=== PATIENT | male | born 1975 | race African-American/Black ===

== ENCOUNTER 2016-11-30 10:24 | Inpatient (IN) | payer MEDICAID ==
[~2016-11-30] VITALS: Ht 172.7 cm; Wt 78.9 kg
[~2016-11-30 10:24] MED LIST: GLIP10TA13 PO; LISI5TAB7 PO; METF500T4 PO; METO10TA2 PO; ONDA4TAB13 SL; PROP20TA PO
[2016-11-30] MEDS ORDERED: SODIUM CHLORIDE 0.9% 1,000 ML IV ONE (10:39)
[2016-11-30] MEDS ORDERED: MAALOX/HYOSCYAMINE/LIDOCAINE 45 ML BOTTLE ONE (10:46)
[2016-11-30] MEDS ORDERED: HYDROmorphone 1 MG/ML, 1ML ONE ×2 (10:46→12:39)
[2016-11-30] MEDS ORDERED: LORazepam 2 MG/ML, 1ML ONE (10:46)
[2016-11-30] MEDS ORDERED: ONDANSETRON 2MG/ML, 2ML ONE (10:46)
[2016-11-30] MEDS ORDERED: LORazepam 2 MG/ML, 1ML IVPush ONE (11:00)
[2016-11-30] MEDS ORDERED: SODIUM CHLORIDE 0.9% 1,000ML IVBOLUS ONE (11:00)
[2016-11-30] MEDS ORDERED: FAMOTIDINE 20 MG/2 ML IVP ONE (11:00)
[2016-11-30] MEDS ORDERED: HYDROmorphone 1 MG/ML, 1ML IVPush PRN (11:00)
[2016-11-30] MEDS ORDERED: MAALOX/HYOSCYAMINE/LIDOCAINE 45 ML BOTTLE PO ONE (11:00)
[2016-11-30] MEDS ORDERED: ONDANSETRON 2MG/ML, 2ML IVPush ONE (11:00)
[2016-11-30 11:28] LABS: ASPARTATE AMINO TRANSFERASE 21 U/L (15-37); BLOOD UREA NITROGEN 7 mg/dL (7-18)
[2016-11-30] MEDS ORDERED: POLYETHYLENE GLYCOL 17 GM PACKET PO PRN (12:30)
[2016-11-30] MEDS ORDERED: DOCUSATE 100 MG CAPSULE PO PRN (12:30)
[2016-11-30] MEDS ORDERED: BISACODYL 10 MG SUPP PR PRN (12:30)
[2016-11-30] MEDS ORDERED: ENALAPRILAT 1.25 MG/ML, 2ML ONE (12:39)
[2016-11-30] MEDS: ENALAPRILAT 1.25 MG/ML, 2ML IVPush PRN (12:48)
[2016-11-30 13:39] VITALS: BP 179/81
[2016-11-30 14:08] VITALS: BP 179/81
[2016-11-30] MEDS: ENOXAPARIN 40 MG/0.4 ML SQ SCH (14:38)
[2016-11-30] MEDS: POTASSIUM CHLORIDE 40 MEQ in LACTATED RINGERS 1,000 ML IV SCH ×2 (14:38→21:54)
[2016-11-30] MEDS: INSULIN REGULAR 100 UNITS/ML, 3ML VIAL SQ-INSULIN SCH ×2 (16:27→21:54)
[2016-11-30] MEDS: MORPHINE SULFATE 4 MG/ML, 1ML IVPush PRN ×3 (16:27→22:40)
[2016-11-30 18:56] LABS: DAU SCREEN DISCLAIMER
[2016-11-30 19:31] LABS: PATH.CAST-FLAG NOT PRESENT; SPERM-FLAG NOT PRESENT; SRC-FLAG NOT PRESENT; XTAL-FLAG NOT PRESENT; YLC-FLAG NOT PRESENT
[2016-11-30 19:55] VITALS: BP 148/89
[2016-11-30] MEDS: ONDANSETRON 2MG/ML, 2ML IVP PRN (22:40)
[2016-11-30] MEDS: HYDROmorphone 2 MG/ML, 1ML IVPush PRN (23:18)
[2016-12-01 02:00] VITALS: BP 163/95
[2016-12-01] MEDS: POTASSIUM CHLORIDE 40 MEQ in LACTATED RINGERS 1,000 ML IV SCH (04:10)
[2016-12-01 05:46] LABS: BLOOD UREA NITROGEN 9 mg/dL (7-18)
[2016-12-01 05:50] LABS: ASPARTATE AMINO TRANSFERASE 11 U/L (15-37)
[2016-12-01] MEDS: ONDANSETRON 2MG/ML, 2ML IVP PRN ×2 (06:09→19:40)
[2016-12-01] MEDS: HYDROmorphone 2 MG/ML, 1ML IVPush PRN ×5 (06:09→22:50)
[2016-12-01 09:15] VITALS: BP 159/92
[2016-12-01] MEDS ORDERED: D5%-0.45% NACL 1,000 ML IV SCH (09:23)
[2016-12-01] MEDS ORDERED: HYDROmorphone 1 MG/ML, 1ML ONE (09:35)
[2016-12-01] MEDS: INSULIN REGULAR 100 UNITS/ML, 3ML VIAL SQ-INSULIN SCH ×4 (09:41→21:55)
[2016-12-01 11:00] VITALS: BP 162/91
[2016-12-01] MEDS: PANTOPRAZOLE 40 MG IV IVPush SCH ×2 (11:06→21:54)
[2016-12-01 15:00] VITALS: BP 161/97
[2016-12-01] MEDS: ENOXAPARIN 40 MG/0.4 ML SQ SCH (15:42)
[2016-12-01] MEDS ORDERED: METOCLOPRAMIDE 5 MG/ML, 2ML IVPush PRN (16:00)
[2016-12-01] MEDS: SODIUM CHLORIDE 0.9% 1,000 ML IV SCH ×2 (16:56→21:55)
[2016-12-01 19:23] VITALS: BP 184/92
[2016-12-02 02:20] VITALS: BP 170/95
[2016-12-02] MEDS: HYDROmorphone 2 MG/ML, 1ML IVPush PRN ×6 (02:45→21:51)
[2016-12-02] MEDS: SODIUM CHLORIDE 0.9% 1,000 ML IV SCH ×4 (05:52→21:54)
[2016-12-02 06:35] LABS: BLOOD UREA NITROGEN 8 mg/dL (7-18)
[2016-12-02 07:53] VITALS: BP 157/91
[2016-12-02] MEDS: PANTOPRAZOLE 40 MG IV IVPush SCH ×2 (09:46→22:00)
[2016-12-02] MEDS: INSULIN REGULAR 100 UNITS/ML, 3ML VIAL SQ-INSULIN SCH ×4 (09:48→20:10)
[2016-12-02] MEDS ORDERED: MAALOX/HYOSCYAMINE/LIDOCAINE 45 ML BOTTLE PO ONE (14:00)
[2016-12-02 14:45] VITALS: BP 180/95
[2016-12-02] MEDS ORDERED: LISINOPRIL 5 MG TABLET PO SCH (15:30)
[2016-12-02] MEDS: MAALOX/HYOSCYAMINE/LIDOCAINE 45 ML BOTTLE PO PRN ×2 (16:09→16:10)
[2016-12-02] MEDS: ENOXAPARIN 40 MG/0.4 ML SQ SCH (16:11)
[2016-12-02] MEDS: METOCLOPRAMIDE 5 MG/ML, 2ML IVPush SCH ×2 (16:12→20:23)
[2016-12-02] MEDS: SIMETHICONE 80 MG CHEW TAB PO SCH ×2 (16:12→20:23)
[2016-12-02] MEDS: SENNA/DOCUSATE TABLET PO SCH (16:25)
[2016-12-02 18:22] VITALS: BP 173/98
[2016-12-02 21:03] VITALS: BP 168/98
[2016-12-03] VITALS (7 sets, daily range): BP systolic 158–186; BP diastolic 87–104
[2016-12-03] MEDS: HYDROcodone/APAP 5/325 TABLET PO PRN ×3 (00:26→23:04)
[2016-12-03] MEDS: HYDROmorphone 2 MG/ML, 1ML IVPush PRN ×2 (01:56→05:13)
[2016-12-03] MEDS: SIMETHICONE 80 MG CHEW TAB PO SCH ×4 (08:37→20:19)
[2016-12-03] MEDS: INSULIN REGULAR 100 UNITS/ML, 3ML VIAL SQ-INSULIN SCH ×4 (08:38→20:18)
[2016-12-03] MEDS: METOCLOPRAMIDE 5 MG/ML, 2ML IVPush SCH ×3 (08:39→21:36)
[2016-12-03] MEDS: LISINOPRIL 5 MG TABLET PO SCH ×2 (08:40→20:19)
[2016-12-03] MEDS: SENNA/DOCUSATE TABLET PO SCH (08:40)
[2016-12-03] MEDS: PANTOPROZOLE 40MG TABLET PO SCH ×2 (09:30→21:36)
[2016-12-03] MEDS: SODIUM CHLORIDE 0.9% 1,000 ML IV SCH ×2 (12:57→21:40)
[2016-12-03] MEDS: ONDANSETRON 2MG/ML, 2ML IVP SCH ×2 (12:57→20:18)
[2016-12-03] MEDS: ENOXAPARIN 40 MG/0.4 ML SQ SCH (12:58)
[2016-12-03] MEDS: KETOROLAC 30 MG/1 ML IVPush PRN ×2 (13:04→21:36)
[2016-12-03] MEDS: ENALAPRILAT 1.25 MG/ML, 2ML IVPush PRN ×2 (15:04→22:02)
[2016-12-04] MEDS: ONDANSETRON 2MG/ML, 2ML IVP SCH ×3 (01:56→16:19)
[2016-12-04 01:58] VITALS: BP 168/99
[2016-12-04] MEDS: SIMETHICONE 80 MG CHEW TAB PO SCH ×4 (07:00→21:06)
[2016-12-04] MEDS: INSULIN REGULAR 100 UNITS/ML, 3ML VIAL SQ-INSULIN SCH ×4 (07:00→21:00)
[2016-12-04] MEDS: LISINOPRIL 5 MG TABLET PO SCH ×2 (09:00→21:00)
[2016-12-04] MEDS: METOCLOPRAMIDE 5 MG/ML, 2ML IVPush SCH ×3 (09:00→21:06)
[2016-12-04] MEDS ORDERED: SINCALIDE (KINEVAC) 5 MCG ONE (09:19)
[2016-12-04] MEDS: SODIUM CHLORIDE 0.9% 1,000 ML IV SCH (11:21)
[2016-12-04 11:22] VITALS: BP 170/126
[2016-12-04] MEDS: SENNA/DOCUSATE TABLET PO SCH (11:22)
[2016-12-04] MEDS: PANTOPROZOLE 40MG TABLET PO SCH ×2 (11:22→21:06)
[2016-12-04] MEDS: ENOXAPARIN 40 MG/0.4 ML SQ SCH (12:58)
[2016-12-04 16:43] VITALS: BP 176/105
[2016-12-04 20:12] VITALS: BP 176/100
[2016-12-05] MEDS: SODIUM CHLORIDE 0.9% 1,000 ML IV SCH ×3 (00:09→18:45)
[2016-12-05] MEDS: ONDANSETRON 2MG/ML, 2ML IVP SCH ×5 (00:09→23:42)
[2016-12-05 00:10] VITALS: BP 165/92
[2016-12-05 04:20] VITALS: BP 170/93
[2016-12-05] MEDS: KETOROLAC 30 MG/1 ML IVPush PRN ×2 (06:40→16:41)
[2016-12-05] MEDS: INSULIN REGULAR 100 UNITS/ML, 3ML VIAL SQ-INSULIN SCH ×4 (07:00→20:17)
[2016-12-05] MEDS: SIMETHICONE 80 MG CHEW TAB PO SCH ×4 (07:00→19:53)
[2016-12-05 07:20] VITALS: BP 157/91
[2016-12-05] MEDS ORDERED: FENTANYL PF 100 MCG/2ML ONE ×3 (07:58→13:38)
[2016-12-05] MEDS ORDERED: MIDAZOLAM 1 MG/ML, 5ML ONE ×2 (07:58→08:53)
[2016-12-05] MEDS ORDERED: DIPHENHYDRAMINE 50 MG/ML, 1ML ONE (08:53)
[2016-12-05] MEDS: PANTOPROZOLE 40MG TABLET PO SCH ×2 (09:00→19:53)
[2016-12-05] MEDS: LISINOPRIL 5 MG TABLET PO SCH ×2 (09:00→19:52)
[2016-12-05] MEDS: SENNA/DOCUSATE TABLET PO SCH (09:00)
[2016-12-05] MEDS: METOCLOPRAMIDE 5 MG/ML, 2ML IVPush SCH ×3 (09:49→19:53)
[2016-12-05] MEDS ORDERED: MIDAZOLAM 1 MG/ML, 2ML ONE (11:34)
[2016-12-05] MEDS ORDERED: FENTANYL PF 250 MCG/5ML ONE (11:34)
[2016-12-05] MEDS ORDERED: BUPIVACAINE/PF 0.5% ONE (12:09)
[2016-12-05] MEDS ORDERED: ONDANSETRON 2MG/ML, 2ML IVPush PRN (13:00)
[2016-12-05] MEDS ORDERED: NEOSTIGMINE 1 MG/ML, 10ML ONE (13:00)
[2016-12-05] MEDS ORDERED: LABETALOL 5MG/ML 40ML VIAL ONE (13:00)
[2016-12-05] MEDS ORDERED: ROCURONIUM 10 MG/ML ONE (13:00)
[2016-12-05] MEDS ORDERED: LABETALOL 5MG/ML, 20ML IV PRN (13:00)
[2016-12-05] MEDS ORDERED: OXYcodone 5 MG/5 ML ORAL.SOL UDC PO PRN (13:00)
[2016-12-05] MEDS ORDERED: PROMETHAZINE 25 MG/ML, 1ML IV PRN (13:00)
[2016-12-05] MEDS ORDERED: PROPOFOL 10 MG/ML, 20ML ONE (13:00)
[2016-12-05] MEDS ORDERED: METOCLOPRAMIDE 5 MG/ML, 2ML IV PRN (13:00)
[2016-12-05] MEDS ORDERED: CEFOTETAN 2 GM ONE (13:00)
[2016-12-05] MEDS ORDERED: GLYCOPYRROLATE 0.2MG/1ML ONE (13:00)
[2016-12-05] MEDS ORDERED: MEPERIDINE/PF 25MG/0.5ML IVPush PRN (13:00)
[2016-12-05] MEDS ORDERED: HYDROmorphone 2 MG/ML, 1ML ONE (13:38)
[2016-12-05] MEDS ORDERED: OXYcodone 5 MG/5 ML ORAL.SOL UDC ONE (13:38)
[2016-12-05] MEDS: ENOXAPARIN 40 MG/0.4 ML SQ SCH (14:00)
[2016-12-05] MEDS ORDERED: hydrALAzine 20 MG/ML, 1ML ONE (14:02)
[2016-12-05] MEDS: hydrALAzine 20 MG/ML, 1ML IV PRN ×2 (14:03→14:44)
[2016-12-05] MEDS: FENTANYL PF 100 MCG/2ML IV PRN ×2 (14:25→14:45)
[2016-12-05] MEDS: HYDROmorphone 1 MG/ML, 1ML IV PRN ×5 (14:53→15:15)
[2016-12-05 17:43] VITALS: BP 191/93
[2016-12-05] MEDS: HYDROcodone/APAP 5/325 TABLET PO PRN ×2 (17:48→23:42)
[2016-12-05] MEDS: ENALAPRILAT 1.25 MG/ML, 2ML IVPush PRN (17:49)
[2016-12-05 19:30] VITALS: BP 150/86
[2016-12-06 00:18] VITALS: BP 175/93
[2016-12-06] MEDS: KETOROLAC 30 MG/1 ML IVPush PRN ×2 (00:28→09:14)
[2016-12-06 04:20] VITALS: BP 157/81
[2016-12-06 04:52] LABS: BLOOD UREA NITROGEN 8 mg/dL (7-18)
[2016-12-06 04:57] LABS: ASPARTATE AMINO TRANSFERASE 24 U/L (15-37)
[2016-12-06] MEDS: SODIUM CHLORIDE 0.9% 1,000 ML IV SCH (05:00)
[2016-12-06] MEDS: ONDANSETRON 2MG/ML, 2ML IVP SCH ×2 (05:42→11:35)
[2016-12-06] MEDS: HYDROcodone/APAP 5/325 TABLET PO PRN ×2 (05:42→11:42)
[2016-12-06] MEDS: SIMETHICONE 80 MG CHEW TAB PO SCH ×2 (05:42→11:36)
[2016-12-06 06:32] VITALS: BP_SYST 176; BP_SYST 183; BP_DIAS 101; BP_DIAS 109
[2016-12-06] MEDS: ENALAPRILAT 1.25 MG/ML, 2ML IVPush PRN (06:47)
[2016-12-06] MEDS: INSULIN REGULAR 100 UNITS/ML, 3ML VIAL SQ-INSULIN SCH ×2 (07:38→11:00)
[2016-12-06 08:11] VITALS: BP 166/91
[2016-12-06] MEDS ORDERED: MORPHINE SULFATE 4 MG/ML, 1ML IVPush PRN (08:30)
[2016-12-06] MEDS: METOCLOPRAMIDE 5 MG/ML, 2ML IVPush SCH (09:12)
[2016-12-06] MEDS: LISINOPRIL 5 MG TABLET PO SCH (09:13)
[2016-12-06] MEDS: SENNA/DOCUSATE TABLET PO SCH (09:13)
[2016-12-06] MEDS: PANTOPROZOLE 40MG TABLET PO SCH (09:13)
[2016-12-06 12:29] VITALS: BP_SYST 170; BP_SYST 171; BP_DIAS 93; BP_DIAS 97
[2016-12-06] MEDS ORDERED: HYDR-3240 PO ×2 (12:57→14:54)
[2016-12-06] MEDS: ENOXAPARIN 40 MG/0.4 ML SQ SCH (14:00)
== END 2016-12-06 15:00 | disposition home or self-care (01) | DRG 417 ==
LOC: ED 11:44 → EDIP 11:45 → EDBD 11:45 → ED 12:02 → 4WST 13:40 → 4NOR 12-05 16:13 → DCLOUNGE 12-06 14:45
PROVIDERS: ADMIT Family Medicine; ATTEND Family Medicine
PROC: 0T9B70Z Drainage of Bladder with Drainage Device, Via Natural or Artificial Opening (ICD-10-PCS; 2016-11-30)
PROC: 0DJ08ZZ Inspection of Upper Intestinal Tract, Via Natural or Artificial Opening Endoscopic (ICD-10-PCS; 2016-12-05)
PROC: 0FT44ZZ Resection of Gallbladder, Percutaneous Endoscopic Approach (ICD-10-PCS; principal; 2016-12-05 10:15)
DX: K82.8 Other specified diseases of gallbladder (principal); G92 Toxic encephalopathy; K86.1 Other chronic pancreatitis; I11.9 Hypertensive heart disease without heart failure; F17.210 Nicotine dependence, cigarettes, uncomplicated; E11.65 Type 2 diabetes mellitus with hyperglycemia; K44.9 Diaphragmatic hernia without obstruction or gangrene; F12.10 Cannabis abuse, uncomplicated; G89.29 Other chronic pain; Z83.3 Family history of diabetes mellitus; Z79.84 Long term (current) use of oral hypoglycemic drugs; Z90.5 Acquired absence of kidney; Z71.51 Drug abuse counseling and surveillance of drug abuser
CPT/HCPCS: 36415; 71010; 76700; 78227; 78264; 80048; 80053; 80061; 80307; 81001; 82962; 83036; 83690; 85025; 85610; 86677; 87046; 87899; 88304; 89055; 93005; 96372; 96374; 96375; 96376; J1170; J1650; J1815; J1885; J2250; J2405; J2704; J2710; J3010; J3480; J3490; A9537; A9541; C9113; C9898; J0360; J1200; J2060; J2765; J2805; J7030; J7120; S0028; S0074

== ENCOUNTER 2016-12-10 08:09 | Emergency (ER) | payer MEDICAID ==
[~2016-12-10] VITALS: Ht 172.7 cm; Wt 78.0 kg
[~2016-12-10 08:09] MED LIST changes: +HYDR-3240 PO
[2016-12-10] MEDS ORDERED: OXYcodone/APAP 5/325MG TABLET PO ONE (09:30)
[2016-12-10] MEDS ORDERED: ONDANSETRON ODT 4 MG PO ONE (09:30)
[2016-12-10] MEDS ORDERED: OXYcodone/APAP 5/325MG TABLET ONE (09:52)
[2016-12-10] MEDS ORDERED: ONDANSETRON ODT 4 MG ONE (09:52)
[2016-12-10 10:30] LABS: PATH.CAST-FLAG NOT PRESENT; SPERM-FLAG NOT PRESENT; SRC-FLAG NOT PRESENT; XTAL-FLAG NOT PRESENT; YLC-FLAG NOT PRESENT
[2016-12-10 10:32] LABS: BLOOD UREA NITROGEN 12 mg/dL (7-18)
[2016-12-10 10:36] LABS: ASPARTATE AMINO TRANSFERASE 14 U/L (15-37)
[2016-12-10 11:23] VITALS: BP 160/97
[2016-12-10] MEDS ORDERED: DIPH,PERTUSS(ACELL),TET VAC/PF 0.5 ML IM-VACC ONE (11:30)
[2016-12-10] MEDS ORDERED: LIDOCAINE 1%, 20ML INFIL ONE (11:30)
== END 2016-12-10 11:34 | disposition home or self-care (01) ==
LOC: ED 08:37
DX: K59.00 Constipation, unspecified (principal); E11.9 Type 2 diabetes mellitus without complications; I10 Essential (primary) hypertension
CPT/HCPCS: 36415; 74020; 80053; 81001; 85025; 99285; Q0162

== ENCOUNTER 2016-12-11 01:25 | Emergency (ER) | payer MEDICAID ==
[~2016-12-11] VITALS: Ht 172.7 cm; Wt 77.5 kg
[2016-12-11] MEDS ORDERED: ONDANSETRON 2MG/ML, 2ML ONE (01:40)
[2016-12-11] MEDS ORDERED: HYDROmorphone 1 MG/ML, 1ML ONE (01:40)
[2016-12-11] MEDS ORDERED: METOCLOPRAMIDE 5 MG/ML, 2ML ONE (01:40)
[2016-12-11] MEDS ORDERED: HYDROmorphone 1 MG/ML, 1ML IVPush PRN (02:00)
[2016-12-11] MEDS ORDERED: ONDANSETRON 2MG/ML, 2ML IVPush ONE (02:00)
[2016-12-11] MEDS ORDERED: METOCLOPRAMIDE 5 MG/ML, 2ML IVPush ONE (02:00)
[2016-12-11 02:05] LABS: ASPARTATE AMINO TRANSFERASE 22 U/L (15-37); BLOOD UREA NITROGEN 10 mg/dL (7-18)
[2016-12-11 03:42] VITALS: BP 151/86
== END 2016-12-11 03:44 | disposition home or self-care (01) ==
LOC: ED 01:47
DX: K85.90 Acute pancreatitis without necrosis or infection, unspecified (principal); R10.13 Epigastric pain; E11.9 Type 2 diabetes mellitus without complications; I10 Essential (primary) hypertension
CPT/HCPCS: 36415; 80053; 83690; 85025; 96374; 96375; 99284; J1170; J2405; J2765

== ENCOUNTER 2016-12-13 23:48 | Emergency (ER) | payer MEDICAID ==
[~2016-12-13] VITALS: Ht 172.7 cm; Wt 77.3 kg
[2016-12-14] MEDS ORDERED: SODIUM CHLORIDE FLUSH 10ML SYR IVF ONE
[2016-12-14] MEDS ORDERED: ONDANSETRON 2MG/ML, 2ML IVPush ONE
[2016-12-14] MEDS ORDERED: SODIUM CHLORIDE 0.9% 1,000ML IVBOLUS ONE
[2016-12-14] MEDS ORDERED: MORPHINE SULFATE 4 MG/ML, 1ML IVPush PRN
[2016-12-14] MEDS ORDERED: ONDANSETRON 2MG/ML, 2ML ONE (00:06)
[2016-12-14] MEDS ORDERED: MORPHINE SULFATE 4 MG/ML, 1ML ONE (00:06)
[2016-12-14 00:29] LABS: BLOOD UREA NITROGEN 12 mg/dL (7-18)
[2016-12-14 00:33] LABS: ASPARTATE AMINO TRANSFERASE 24 U/L (15-37)
[2016-12-14] MEDS ORDERED: ONDANSETRON ODT 4 MG ONE (01:08)
[2016-12-14] MEDS ORDERED: METOCLOPRAMIDE 5 MG/ML, 2ML ONE (01:08)
[2016-12-14] MEDS ORDERED: ONDANSETRON ODT 4 MG PO ONE (01:30)
[2016-12-14] MEDS ORDERED: METOCLOPRAMIDE 5 MG/ML, 2ML IVPush ONE (01:30)
[2016-12-14] MEDS ORDERED: METOCLOPRAMIDE 5 MG/ML, 2ML IM ONE (01:30)
[2016-12-14] MEDS ORDERED: METHYLNALTREXONE 12 MG/0.6 ML SQ ONE (02:00)
[2016-12-14 02:40] VITALS: BP 137/86
[2016-12-14] MEDS ORDERED: FAMOTIDINE 20 MG/2 ML ONE (09:17)
== END 2016-12-14 02:50 | disposition home or self-care (01) ==
LOC: ED 23:59
DX: K59.00 Constipation, unspecified (principal); R10.31 Right lower quadrant pain; R10.11 Right upper quadrant pain; R10.84 Generalized abdominal pain; E11.9 Type 2 diabetes mellitus without complications; I10 Essential (primary) hypertension; Z90.49 Acquired absence of other specified parts of digestive tract
CPT/HCPCS: 36415; 74176; 80053; 83690; 85025; 96372; 99285; J2765; Q0162

== ENCOUNTER 2016-12-14 05:55 | Inpatient (IN) | payer MEDICAID ==
[~2016-12-14] VITALS: Ht 180.3 cm; Wt 74.7 kg
[2016-12-14] MEDS: SODIUM CHLORIDE 0.9% 1,000 ML IV ONE (06:12)
[2016-12-14] MEDS ORDERED: FAMOTIDINE 20 MG/2 ML IVP ONE (06:30)
[2016-12-14] MEDS ORDERED: SODIUM CHLORIDE FLUSH 10ML SYR IVF ONE (06:30)
[2016-12-14] MEDS ORDERED: SODIUM CHLORIDE 0.9% 1,000ML IVBOLUS ONE (06:30)
[2016-12-14] MEDS ORDERED: ONDANSETRON 2MG/ML, 2ML IVPush ONE (06:30)
[2016-12-14] MEDS ORDERED: HYDROmorphone 1 MG/ML, 1ML IVPush PRN (06:30)
[2016-12-14] MEDS ORDERED: LORazepam 2 MG/ML, 1ML ONE (06:43)
[2016-12-14] MEDS ORDERED: HYDROmorphone 1 MG/ML, 1ML ONE ×2 (06:52→08:52)
[2016-12-14] MEDS ORDERED: ONDANSETRON ODT 4 MG ONE (06:53)
[2016-12-14] MEDS ORDERED: LORazepam 2 MG/ML, 1ML IM ONE (07:00)
[2016-12-14] MEDS ORDERED: ONDANSETRON ODT 4 MG PO ONE ×2 (07:00→09:30)
[2016-12-14] MEDS ORDERED: HYDROmorphone 1 MG/ML, 1ML IM ONE ×2 (07:00→09:30)
[2016-12-14 07:36] LABS: ASPARTATE AMINO TRANSFERASE 35 U/L (15-37); BLOOD UREA NITROGEN 10 mg/dL (7-18)
[2016-12-14 07:43] LABS: DIFF TOTAL CELLS COUNTED 100 CELL DIFF
[2016-12-14] MEDS ORDERED: hydrALAzine 20 MG/ML, 1ML IV ONE (08:30)
[2016-12-14 08:34] LABS: VERIFY COUNTS? YES
[2016-12-14] MEDS ORDERED: hydrALAzine 20 MG/ML, 1ML ONE (08:53)
[2016-12-14] MEDS ORDERED: ONDANSETRON 2MG/ML, 2ML ONE (09:09)
[2016-12-14] MEDS ORDERED: ONDANSETRON 2MG/ML, 2ML IVPush PRN (10:00)
[2016-12-14] MEDS: AMPICILLIN/SULBACTAM 3 GM in SODIUM CHLORIDE 0.9% 100 ML IV SCH ×3 (10:00→20:45)
[2016-12-14] MEDS ORDERED: ENALAPRILAT 1.25 MG/ML, 2ML IV PRN (10:00)
[2016-12-14] MEDS: FAMOTIDINE 20 MG/2 ML IVPush SCH ×2 (10:00→21:17)
[2016-12-14 10:23] VITALS: BP 200/101
[2016-12-14] MEDS: SODIUM CHLORIDE 0.9% 1,000 ML IV SCH (12:36)
[2016-12-14] MEDS: HYDROmorphone 2 MG/ML, 1ML IVPush PRN ×2 (12:41→21:17)
[2016-12-14 13:33] VITALS: BP 147/89
[2016-12-14 18:53] VITALS: BP 166/92
[2016-12-14] MEDS: PROPRANOLOL 20 MG TABLET PO SCH (21:17)
[2016-12-15] VITALS (7 sets, daily range): BP systolic 140–189; BP diastolic 83–119
[2016-12-15] MEDS: HYDROmorphone 2 MG/ML, 1ML IVPush PRN ×3 (00:37→08:42)
[2016-12-15] MEDS: SODIUM CHLORIDE 0.9% 1,000 ML IV SCH (02:55)
[2016-12-15] MEDS: AMPICILLIN/SULBACTAM 3 GM in SODIUM CHLORIDE 0.9% 100 ML IV SCH (05:13)
[2016-12-15 05:54] LABS: BLOOD UREA NITROGEN 9 mg/dL (7-18)
[2016-12-15 05:57] LABS: ASPARTATE AMINO TRANSFERASE 31 U/L (15-37)
[2016-12-15] MEDS: FAMOTIDINE 20 MG/2 ML IVPush SCH (08:40)
[2016-12-15] MEDS: LISINOPRIL 5 MG TABLET PO SCH (08:42)
[2016-12-15] MEDS: PROPRANOLOL 20 MG TABLET PO SCH ×2 (08:43→21:04)
[2016-12-15] MEDS ORDERED: METOCLOPRAMIDE 5 MG/ML, 2ML IVPush SCH (09:00)
[2016-12-15] MEDS ORDERED: ONDANSETRON ODT 4 MG PO PRN (10:30)
[2016-12-15] MEDS: AMOXICILLIN/CLAV 875-125MG TABLET PO SCH (11:01)
[2016-12-15] MEDS: METOCLOPRAMIDE 10MG TABLET PO SCH ×3 (11:01→21:04)
[2016-12-15] MEDS: HYDROcodone/APAP 5/325 TABLET PO PRN ×2 (11:01→21:04)
[2016-12-15] MEDS: FAMOTIDINE 20 MG TABLET PO SCH (22:01)
[2016-12-16] MEDS: AMOXICILLIN/CLAV 875-125MG TABLET PO SCH ×2 (00:10→10:47)
[2016-12-16] MEDS: HYDROcodone/APAP 5/325 TABLET PO PRN ×3 (01:00→11:47)
[2016-12-16 01:34] VITALS: BP 154/100
[2016-12-16 05:24] LABS: ASPARTATE AMINO TRANSFERASE 27 U/L (15-37); BLOOD UREA NITROGEN 10 mg/dL (7-18)
[2016-12-16] MEDS: METOCLOPRAMIDE 10MG TABLET PO SCH ×2 (07:00→10:48)
[2016-12-16 08:00] VITALS: BP 155/92
[2016-12-16] MEDS: FAMOTIDINE 20 MG TABLET PO SCH (08:53)
[2016-12-16] MEDS: PROPRANOLOL 20 MG TABLET PO SCH (08:54)
[2016-12-16] MEDS: LISINOPRIL 5 MG TABLET PO SCH (08:54)
[2016-12-16] MEDS ORDERED: AMOX1TAB12 PO (12:47)
[2016-12-16] MEDS ORDERED: OXYC5TAB3 PO (12:47)
[2016-12-16] MEDS ORDERED: PNEUMOCOCCAL 23 VACCINE IM-VACC ONE (13:30)
== END 2016-12-16 13:21 | disposition home or self-care (01) | DRG 392 ==
LOC: ED 07:42 → EDIP 08:19 → 3NE 09:10
PROVIDERS: ADMIT Internal Medicine; ATTEND Family Medicine
PROC: 02HV33Z Insertion of Infusion Device into Superior Vena Cava, Percutaneous Approach (ICD-10-PCS; principal; 2016-12-14)
PROC: B548ZZA Ultrasonography of Superior Vena Cava, Guidance (ICD-10-PCS; 2016-12-14)
DX: R10.9 Unspecified abdominal pain (principal); K86.1 Other chronic pancreatitis; I16.0 Hypertensive urgency; E11.43 Type 2 diabetes mellitus with diabetic autonomic (poly)neuropathy; K31.84 Gastroparesis; G89.4 Chronic pain syndrome; I10 Essential (primary) hypertension; F17.210 Nicotine dependence, cigarettes, uncomplicated; E11.65 Type 2 diabetes mellitus with hyperglycemia; Z83.3 Family history of diabetes mellitus; Z90.5 Acquired absence of kidney; Z90.49 Acquired absence of other specified parts of digestive tract; Z91.013 Allergy to seafood; Z79.84 Long term (current) use of oral hypoglycemic drugs; Z79.899 Other long term (current) drug therapy
CPT/HCPCS: 36415; 36569; 71010; 74181; 76700; 76937; 77001; 80053; 83690; 85025; 87040; 93005; 96361; 96372; 96374; J0295; J1170; J2405; Q0162; C1751; J0360; J2060; J2765; J7030; S0028

== ENCOUNTER 2017-02-01 10:20 | Emergency (ER) | payer MEDICAID ==
[~2017-02-01] VITALS: Ht 172.7 cm; Wt 79.0 kg
[~2017-02-01 10:20] MED LIST changes: +AMOX1TAB12 PO; +OXYC5TAB3 PO
[2017-02-01 10:26] VITALS: BP 150/110
[2017-02-01] MEDS ORDERED: ONDANSETRON 2MG/ML, 2ML ONE (10:36)
[2017-02-01] MEDS ORDERED: LORazepam 2 MG/ML, 1ML ONE (10:37)
[2017-02-01] MEDS ORDERED: SODIUM CHLORIDE FLUSH 10ML SYR IVF ONE (11:00)
[2017-02-01] MEDS ORDERED: SODIUM CHLORIDE 0.9% 1,000ML IVBOLUS ONE (11:00)
[2017-02-01] MEDS ORDERED: LORazepam 2 MG/ML, 1ML IVPush ONE (11:00)
[2017-02-01] MEDS ORDERED: ONDANSETRON 2MG/ML, 2ML IVPush ONE (11:00)
[2017-02-01 11:25] LABS: ASPARTATE AMINO TRANSFERASE 23 U/L (15-37); BLOOD UREA NITROGEN 9 mg/dL (7-18)
[2017-02-01] MEDS ORDERED: PROMETHAZINE 25 MG/ML, 1ML ONE (11:46)
[2017-02-01] MEDS ORDERED: PROMETHAZINE 25 MG/ML, 1ML IM ONE (12:00)
[2017-02-02] MEDS ORDERED: DICY20TA3 PO (14:48)
[2017-02-02] MEDS ORDERED: METO10TA82 PO (14:48)
[2017-02-02] MEDS ORDERED: FAMO-79 PO (14:48)
== END 2017-02-01 13:34 | disposition home or self-care (01) ==
LOC: ED 12:08
DX: R10.84 Generalized abdominal pain (principal); R11.2 Nausea with vomiting, unspecified; E11.65 Type 2 diabetes mellitus with hyperglycemia; I10 Essential (primary) hypertension; Z90.49 Acquired absence of other specified parts of digestive tract
CPT/HCPCS: 36415; 80053; 83690; 85025; 96361; 96372; 96374; 96375; 99284; J2060; J2405; J2550; J7030

== ENCOUNTER 2017-02-02 00:49 | Emergency (ER) | payer MEDICAID ==
[~2017-02-02] VITALS: Ht 172.7 cm; Wt 70.4 kg
[2017-02-02] MEDS ORDERED: SODIUM CHLORIDE 0.9% 1,000ML IVBOLUS ONE (01:30)
[2017-02-02] MEDS ORDERED: SODIUM CHLORIDE FLUSH 10ML SYR IVF ONE (01:30)
[2017-02-02] MEDS ORDERED: METOCLOPRAMIDE 5 MG/ML, 2ML IVPush ONE (01:30)
[2017-02-02] MEDS ORDERED: METOCLOPRAMIDE 5 MG/ML, 2ML ONE (01:40)
[2017-02-02 02:04] LABS: ASPARTATE AMINO TRANSFERASE 43 U/L (15-37); BLOOD UREA NITROGEN 11 mg/dL (7-18)
[2017-02-02] MEDS ORDERED: ZIPRASIDONE 20 MG INJ IM ONE ×2 (02:17→02:30)
[2017-02-02 03:12] VITALS: BP 179/75
[2017-02-02] MEDS ORDERED: DICY20TA3 PO (14:48)
[2017-02-02] MEDS ORDERED: METO10TA82 PO (14:48)
[2017-02-02] MEDS ORDERED: FAMO-79 PO (14:48)
== END 2017-02-02 04:22 | disposition home or self-care (01) ==
LOC: ED 03:28
DX: R10.84 Generalized abdominal pain (principal); R11.2 Nausea with vomiting, unspecified; R19.7 Diarrhea, unspecified; I10 Essential (primary) hypertension; E11.65 Type 2 diabetes mellitus with hyperglycemia; F17.210 Nicotine dependence, cigarettes, uncomplicated
CPT/HCPCS: 36415; 80053; 81001; 83690; 85025; 96361; 96372; 96374; 99284; J2765; J3486; J7030

== ENCOUNTER 2017-02-02 14:40 | Inpatient (IN) | payer MEDICAID ==
[~2017-02-02] VITALS: Ht 175.3 cm; Wt 75.0 kg
[2017-02-02] MEDS ORDERED: METO10TA82 PO (14:48)
[2017-02-02] MEDS ORDERED: DICY20TA3 PO (14:48)
[2017-02-02] MEDS ORDERED: FAMO-79 PO (14:48)
[2017-02-02] MEDS ORDERED: SODIUM CHLORIDE FLUSH 10ML SYR IVF ONE (15:30)
[2017-02-02 15:38] LABS: ASPARTATE AMINO TRANSFERASE 33 U/L (15-37); BLOOD UREA NITROGEN 11 mg/dL (7-18)
[2017-02-02] MEDS ORDERED: SODIUM CHLORIDE 0.9% 1,000 ML IV ONE (16:56)
[2017-02-02] MEDS ORDERED: SODIUM CHLORIDE FLUSH 10ML SYR IVF PRN (17:00)
[2017-02-02] MEDS ORDERED: ONDANSETRON ODT 4 MG PO PRN (18:00)
[2017-02-02] MEDS ORDERED: HYDROcodone/APAP 5/325 TABLET PO PRN (18:00)
[2017-02-02] MEDS ORDERED: LABETALOL 5MG/ML, 20ML IVPush PRN (18:00)
[2017-02-02] MEDS ORDERED: POLYETHYLENE GLYCOL 17 GM PACKET PO PRN (18:00)
[2017-02-02] MEDS ORDERED: ONDANSETRON 2MG/ML, 2ML IVPush PRN (18:00)
[2017-02-02] MEDS ORDERED: GUAIFENESIN/DM 200-20MG, 10ML UDC PO PRN (18:00)
[2017-02-02 18:02] VITALS: BP 154/90
[2017-02-02] MEDS: MORPHINE SULFATE 4 MG/ML, 1ML IVPush PRN ×2 (18:03→20:58)
[2017-02-02] MEDS: D5%-0.9% NACL 1,000 ML IV SCH (18:04)
[2017-02-02] MEDS: ENOXAPARIN 40 MG/0.4 ML SQ SCH (18:08)
[2017-02-02] MEDS: INSULIN ASPART 100 UNITS/ML, PEN SQ-INSULIN SCH (20:58)
[2017-02-03] MEDS: MORPHINE SULFATE 4 MG/ML, 1ML IVPush PRN ×5 (00:26→22:10)
[2017-02-03] MEDS: D5%-0.9% NACL 1,000 ML IV SCH (00:27)
[2017-02-03 02:42] VITALS: BP 148/90
[2017-02-03 05:54] LABS: ASPARTATE AMINO TRANSFERASE 23 U/L (15-37); BLOOD UREA NITROGEN 9 mg/dL (7-18)
[2017-02-03 06:29] VITALS: BP 178/100
[2017-02-03] MEDS: SENNA/DOCUSATE TABLET PO SCH (07:09)
[2017-02-03] MEDS: INSULIN ASPART 100 UNITS/ML, PEN SQ-INSULIN SCH ×4 (07:14→22:10)
[2017-02-03] MEDS: AMLODIPINE 5 MG TABLET PO SCH (07:14)
[2017-02-03 12:21] VITALS: BP 167/95
[2017-02-03] MEDS: SODIUM CHLORIDE 0.9% 1,000 ML IV SCH (16:00)
[2017-02-03] MEDS: ENOXAPARIN 40 MG/0.4 ML SQ SCH (17:18)
[2017-02-03] MEDS ORDERED: D5%-0.9% NACL 1,000 ML IV SCH (18:00)
[2017-02-03 18:11] VITALS: BP 145/87
[2017-02-03 20:03] VITALS: BP 158/94
[2017-02-03] MEDS: metFORMIN 500 MG TABLET PO SCH (22:09)
[2017-02-04] MEDS: SODIUM CHLORIDE 0.9% 1,000 ML IV SCH ×3 (01:16→21:25)
[2017-02-04 02:12] VITALS: BP 154/88
[2017-02-04 05:25] LABS: BLOOD UREA NITROGEN 8 mg/dL (7-18)
[2017-02-04 05:29] LABS: ASPARTATE AMINO TRANSFERASE 21 U/L (15-37)
[2017-02-04] MEDS: INSULIN ASPART 100 UNITS/ML, PEN SQ-INSULIN SCH ×4 (07:00→21:26)
[2017-02-04 07:26] VITALS: BP 158/89
[2017-02-04] MEDS: metFORMIN 500 MG TABLET PO SCH ×2 (10:08→21:24)
[2017-02-04] MEDS: AMLODIPINE 5 MG TABLET PO SCH (10:08)
[2017-02-04] MEDS: SENNA/DOCUSATE TABLET PO SCH (10:08)
[2017-02-04] MEDS: MORPHINE SULFATE 4 MG/ML, 1ML IVPush PRN ×3 (10:09→21:25)
[2017-02-04] MEDS ORDERED: POTASSIUM CHLORIDE 20 MEQ TAB.ER.PRT PO ONE (11:00)
[2017-02-04] MEDS: HYDROcodone/APAP 5/325 TABLET PO PRN ×3 (12:02→23:28)
[2017-02-04 12:26] VITALS: BP 158/84
[2017-02-04] MEDS ORDERED: MAALOX/HYOSCYAMINE/LIDOCAINE 45 ML BOTTLE PO ONE (12:30)
[2017-02-04] MEDS: SUCRALFATE 1 GM/10 ML UDC PO SCH ×3 (14:42→21:24)
[2017-02-04] MEDS: ENOXAPARIN 40 MG/0.4 ML SQ SCH (17:21)
[2017-02-04 18:59] VITALS: BP 151/82
[2017-02-04] MEDS: OMEPRAZOLE 20 MG CAPSULE.DR PO SCH (21:24)
[2017-02-05 01:35] VITALS: BP 160/98
[2017-02-05] MEDS: MORPHINE SULFATE 4 MG/ML, 1ML IVPush PRN (02:52)
[2017-02-05 05:46] LABS: BLOOD UREA NITROGEN 8 mg/dL (7-18)
[2017-02-05 05:49] LABS: ASPARTATE AMINO TRANSFERASE 20 U/L (15-37)
[2017-02-05 06:28] VITALS: BP 168/83
[2017-02-05] MEDS: SODIUM CHLORIDE 0.9% 1,000 ML IV SCH (06:30)
[2017-02-05] MEDS: INSULIN ASPART 100 UNITS/ML, PEN SQ-INSULIN SCH (07:00)
[2017-02-05] MEDS ORDERED: AMLO5TAB2 PO (07:14)
[2017-02-05] MEDS ORDERED: OMEP-110 PO (07:14)
[2017-02-05] MEDS ORDERED: SUCR1ORA2 PO (07:14)
[2017-02-05] MEDS: metFORMIN 500 MG TABLET PO SCH (08:05)
[2017-02-05] MEDS: SUCRALFATE 1 GM/10 ML UDC PO SCH (08:05)
[2017-02-05] MEDS: OMEPRAZOLE 20 MG CAPSULE.DR PO SCH (08:05)
[2017-02-05] MEDS: AMLODIPINE 5 MG TABLET PO SCH (08:05)
[2017-02-05] MEDS: HYDROcodone/APAP 5/325 TABLET PO PRN (08:05)
[2017-02-05] MEDS: SENNA/DOCUSATE TABLET PO SCH (08:06)
[2017-02-05] MEDS ORDERED: HYDR-3240 PO (08:24)
== END 2017-02-05 08:45 | disposition home or self-care (01) | DRG 439 ==
LOC: ED 15:51 → EDIP 16:56 → 3NE 17:48
DX: K85.30 Drug induced acute pancreatitis without necrosis or infection (principal); E87.1 Hypo-osmolality and hyponatremia; I10 Essential (primary) hypertension; T46.4X5A Adverse effect of angiotensin-converting-enzyme inhibitors, initial encounter; E11.43 Type 2 diabetes mellitus with diabetic autonomic (poly)neuropathy; K31.84 Gastroparesis; G89.29 Other chronic pain; F17.210 Nicotine dependence, cigarettes, uncomplicated; F12.90 Cannabis use, unspecified, uncomplicated; K52.9 Noninfective gastroenteritis and colitis, unspecified; E87.6 Hypokalemia; E11.65 Type 2 diabetes mellitus with hyperglycemia; Z90.49 Acquired absence of other specified parts of digestive tract; Z90.5 Acquired absence of kidney; Z91.013 Allergy to seafood; Z83.3 Family history of diabetes mellitus; Z82.5 Family history of asthma and other chronic lower respiratory diseases; Z82.49 Family history of ischemic heart disease and other diseases of the circulatory system; Z80.8 Family history of malignant neoplasm of other organs or systems
CPT/HCPCS: 36415; 74177; 80053; 82962; 83036; 83690; 84439; 85025; 85610; 99285; J1650; J1815; J7042; J7030

== ENCOUNTER 2017-03-14 15:45 | Emergency (ER) | payer MEDICAID ==
[~2017-03-14] VITALS: Ht 172.7 cm; Wt 73.8 kg
[~2017-03-14 15:45] MED LIST changes: +AMLO5TAB2 PO; +DICY20TA3 PO; +FAMO-79 PO; +METO10TA82 PO; +OMEP-110 PO; +SUCR1ORA2 PO
[2017-03-14] MEDS ORDERED: ACETAMINOPHEN 500 MG TABLET ONE (17:11)
[2017-03-14] MEDS ORDERED: ACETAMINOPHEN 500 MG TABLET PO ONE (17:30)
[2017-03-14 19:01] VITALS: BP 150/95
== END 2017-03-14 19:12 | disposition home or self-care (01) ==
LOC: ED 18:30
DX: R51 Headache (principal); E11.65 Type 2 diabetes mellitus with hyperglycemia; I10 Essential (primary) hypertension
CPT/HCPCS: 70450; 99284

== ENCOUNTER 2017-04-01 06:11 | Inpatient (IN) | payer MEDICAID ==
[~2017-04-01] VITALS: Ht 172.7 cm; Wt 77.4 kg
[~2017-04-01 06:11] MED LIST changes: -SUCR1ORA2 PO; +SUCR1ORA5 PO
[2017-04-01] MEDS ORDERED: MORPHINE SULFATE 4 MG/ML, 1ML ONE ×2 (06:28→06:46)
[2017-04-01] MEDS ORDERED: ONDANSETRON 2MG/ML, 2ML ONE (06:28)
[2017-04-01] MEDS ORDERED: FAMOTIDINE 20 MG/2 ML ONE (06:29)
[2017-04-01] MEDS ORDERED: MORPHINE SULFATE 4 MG/ML, 1ML IVPush PRN (06:30)
[2017-04-01] MEDS ORDERED: ONDANSETRON 2MG/ML, 2ML IVPush ONE (06:30)
[2017-04-01] MEDS ORDERED: SODIUM CHLORIDE 0.9% 1,000ML IVBOLUS ONE (06:30)
[2017-04-01] MEDS ORDERED: FAMOTIDINE 20 MG/2 ML IVP ONE (06:30)
[2017-04-01] MEDS ORDERED: SODIUM CHLORIDE FLUSH 10ML SYR IVF ONE (06:30)
[2017-04-01 07:11] LABS: ASPARTATE AMINO TRANSFERASE 20 U/L (15-37); BLOOD UREA NITROGEN 10 mg/dL (7-18)
[2017-04-01 07:18] LABS: HEMATOCRIT 41.8 % (39.2-51.8); HEMOGLOBIN 13.4 g/dL (13.7-18.0); WHITE BLOOD COUNT 10.8 x10^3/uL (3.4-10)
[2017-04-01 07:20] LABS: IS PT STATUS REG ER OR PRE ER? YES
[2017-04-01] MEDS ORDERED: NS + 20MEQ KCL 1,000 ML IV ONE (08:30)
[2017-04-01] MEDS ORDERED: LORazepam 1MG TABLET PO PRN (09:00)
[2017-04-01] MEDS ORDERED: OXYcodone IR 5MG TABLET PO PRN (09:00)
[2017-04-01] MEDS ORDERED: ZOLPIDEM 5MG TABLET PO PRN (09:00)
[2017-04-01] MEDS ORDERED: LABETALOL 5MG/ML, 20ML IVPush PRN (09:00)
[2017-04-01] MEDS ORDERED: FAMOTIDINE 20 MG/2 ML IVPush SCH (09:00)
[2017-04-01] MEDS ORDERED: OMEPRAZOLE 20 MG CAPSULE.DR PO SCH (09:00)
[2017-04-01 10:17] VITALS: BP 193/102
[2017-04-01] MEDS: HYDROmorphone 2 MG/ML, 1ML IVPush PRN ×5 (10:41→21:45)
[2017-04-01] MEDS: LACTATED RINGERS 1,000 ML IV SCH ×2 (10:43→16:53)
[2017-04-01] MEDS ORDERED: PNEUMOCOCCAL 23 VACCINE IM-VACC ONE ×2 (11:00→19:30)
[2017-04-01] MEDS: metFORMIN 500 MG TABLET PO SCH ×2 (11:52→22:33)
[2017-04-01] MEDS: NICOTINE 7 MG/24 HR PATCH.TD24 TD SCH (11:52)
[2017-04-01] MEDS: SUCRALFATE 1 GM/10 ML UDC PO SCH ×3 (11:53→21:44)
[2017-04-01] MEDS: AMLODIPINE 5 MG TABLET PO SCH (11:53)
[2017-04-01] MEDS: ENOXAPARIN 40 MG/0.4 ML SQ SCH (11:53)
[2017-04-01] MEDS: LACTULOSE 10 GM/15 ML UDC PO SCH ×2 (11:54→21:45)
[2017-04-01 13:28] VITALS: BP 176/98
[2017-04-01] MEDS: ONDANSETRON 2MG/ML, 2ML IVPush PRN (13:39)
[2017-04-01] MEDS: INSULIN ASPART 100 UNITS/ML, PEN SQ-INSULIN SCH ×3 (13:41→22:36)
[2017-04-01 19:48] VITALS: BP 167/98
[2017-04-01] MEDS: OMEPRAZOLE 20 MG CAPSULE.DR PO SCH (21:45)
[2017-04-02] MEDS: ONDANSETRON 2MG/ML, 2ML IVPush PRN (00:28)
[2017-04-02] MEDS: HYDROmorphone 2 MG/ML, 1ML IVPush PRN ×2 (00:28→03:33)
[2017-04-02] MEDS: LACTATED RINGERS 1,000 ML IV SCH ×2 (00:33→08:13)
[2017-04-02 00:39] VITALS: BP 170/100
[2017-04-02 00:58] VITALS: BP 161/98
[2017-04-02 03:26] VITALS: BP 171/91
[2017-04-02 04:15] VITALS: BP_SYST 162; BP_SYST 174; BP_DIAS 83; BP_DIAS 91
[2017-04-02 05:04] LABS: HEMATOCRIT 40.8 % (39.2-51.8); HEMOGLOBIN 13.1 g/dL (13.7-18.0); WHITE BLOOD COUNT 11.1 x10^3/uL (3.4-10)
[2017-04-02 05:08] LABS: ASPARTATE AMINO TRANSFERASE 38 U/L (15-37); BLOOD UREA NITROGEN 6 mg/dL (7-18)
[2017-04-02] MEDS: INSULIN ASPART 100 UNITS/ML, PEN SQ-INSULIN SCH ×2 (05:11→11:10)
[2017-04-02 07:35] VITALS: BP 166/89
[2017-04-02] MEDS: SUCRALFATE 1 GM/10 ML UDC PO SCH ×2 (08:10→11:10)
[2017-04-02] MEDS: metFORMIN 500 MG TABLET PO SCH (08:10)
[2017-04-02] MEDS: OMEPRAZOLE 20 MG CAPSULE.DR PO SCH (08:11)
[2017-04-02] MEDS: AMLODIPINE 5 MG TABLET PO SCH (08:11)
[2017-04-02] MEDS: LACTULOSE 10 GM/15 ML UDC PO SCH (08:11)
[2017-04-02] MEDS ORDERED: OMEP-110 PO (09:19)
[2017-04-02] MEDS ORDERED: HYDR-3240 PO (09:19)
[2017-04-02] MEDS: ENOXAPARIN 40 MG/0.4 ML SQ SCH (11:00)
[2017-04-02] MEDS: NICOTINE 7 MG/24 HR PATCH.TD24 TD SCH (11:11)
[2017-04-02 11:26] VITALS: BP 155/70
== END 2017-04-02 11:35 | disposition home or self-care (01) | DRG 440 ==
LOC: ED 06:52 → EDIP 08:07 → 4NOR 10:15
PROVIDERS: ADMIT Internal Medicine; ATTEND Internal Medicine
DX: K85.90 Acute pancreatitis without necrosis or infection, unspecified (principal); Z93.0 Tracheostomy status; I10 Essential (primary) hypertension; E11.65 Type 2 diabetes mellitus with hyperglycemia; K86.1 Other chronic pancreatitis; E87.6 Hypokalemia; F17.210 Nicotine dependence, cigarettes, uncomplicated; F41.9 Anxiety disorder, unspecified; K21.9 Gastro-esophageal reflux disease without esophagitis; Z87.11 Personal history of peptic ulcer disease; Z90.49 Acquired absence of other specified parts of digestive tract; Z91.013 Allergy to seafood; Z91.048 Other nonmedicinal substance allergy status
CPT/HCPCS: 36415; 74022; 80053; 80061; 82962; 83605; 83690; 84484; 85025; 90732; 93005; 96361; 96374; 96375; J1170; J1650; J1815; J2405; J7030; J7120; S0028

== ENCOUNTER 2017-04-29 10:18 | Emergency (ER) | payer MEDICAID ==
[~2017-04-29] VITALS: Ht 172.7 cm; Wt 74.0 kg
[2017-04-29] MEDS ORDERED: ONDANSETRON 2MG/ML, 2ML ONE (10:51)
[2017-04-29] MEDS ORDERED: HYDROmorphone 1 MG/ML, 1ML ONE (10:51)
[2017-04-29] MEDS ORDERED: LORazepam 2 MG/ML, 1ML ONE (10:52)
[2017-04-29] MEDS ORDERED: LORazepam 2 MG/ML, 1ML IVPush ONE (11:00)
[2017-04-29] MEDS ORDERED: ONDANSETRON 2MG/ML, 2ML IVPush ONE (11:00)
[2017-04-29] MEDS ORDERED: SODIUM CHLORIDE 0.9% 1,000ML IVBOLUS ONE (11:00)
[2017-04-29] MEDS ORDERED: HYDROmorphone 1 MG/ML, 1ML IVPush PRN (11:00)
[2017-04-29 11:26] LABS: ASPARTATE AMINO TRANSFERASE 21 U/L (15-37); BLOOD UREA NITROGEN 11 mg/dL (7-18)
[2017-04-29 11:32] LABS: HEMATOCRIT 40.5 % (39.2-51.8); HEMOGLOBIN 13.4 g/dL (13.7-18.0); WHITE BLOOD COUNT 9.4 x10^3/uL (3.4-10)
[2017-04-29 13:52] VITALS: BP 159/87
== END 2017-04-29 14:47 | disposition home or self-care (01) ==
LOC: ED 12:26
DX: G89.29 Other chronic pain (principal); R10.13 Epigastric pain; I10 Essential (primary) hypertension; F17.210 Nicotine dependence, cigarettes, uncomplicated
CPT/HCPCS: 36415; 74022; 80053; 80307; 83690; 85025; 93005; 96361; 96374; 96375; 99285; J1170; J2060; J2405; J7030; G0479

== ENCOUNTER 2017-06-19 14:04 | Emergency (ER) | payer MEDICAID ==
[~2017-06-19] VITALS: Ht 172.7 cm; Wt 80.0 kg
[2017-06-19] MEDS ORDERED: METF500T4 PO (14:22)
[2017-06-19] MEDS ORDERED: SODIUM CHLORIDE 0.9% 1,000ML IVBOLUS ONE (14:30)
[2017-06-19] MEDS ORDERED: ONDANSETRON 2MG/ML, 2ML IVPush ONE (14:30)
[2017-06-19] MEDS ORDERED: FAMOTIDINE 20 MG/2 ML IVP ONE (14:30)
[2017-06-19] MEDS ORDERED: ONDANSETRON 2MG/ML, 2ML ONE (14:36)
[2017-06-19] MEDS ORDERED: HYDROmorphone 1 MG/ML, 1ML ONE ×2 (14:36→15:12)
[2017-06-19] MEDS ORDERED: FAMOTIDINE 20 MG/2 ML ONE (14:36)
[2017-06-19 15:04] LABS: PH, VENOUS 7.366 pH (7.320-7.420)
[2017-06-19 15:05] LABS: HEMATOCRIT 42.9 % (39.2-51.8); HEMOGLOBIN 14.1 g/dL (13.7-18.0); WHITE BLOOD COUNT 8.1 x10^3/uL (3.4-10)
[2017-06-19] MEDS: HYDROmorphone 1 MG/ML, 1ML IVPush PRN ×2 (15:07→15:14)
[2017-06-19 15:16] LABS: ASPARTATE AMINO TRANSFERASE 19 U/L (15-37); BLOOD UREA NITROGEN 15 mg/dL (7-18)
[2017-06-19] MEDS ORDERED: OMNIPAQUE 350 MG/ML, 100ML BOTTLE ONE (16:10)
[2017-06-19] MEDS ORDERED: PROCHLORPERAZINE 5 MG/ML, 2ML ONE (16:57)
[2017-06-19] MEDS ORDERED: DIPHENHYDRAMINE 50 MG/ML, 1ML ONE (16:57)
[2017-06-19] MEDS ORDERED: PROCHLORPERAZINE 5 MG/ML, 2ML IVPush ONE (17:00)
[2017-06-19] MEDS ORDERED: DIPHENHYDRAMINE 50 MG/ML, 1ML IVPush ONE (17:00)
[2017-06-19 18:16] VITALS: BP 158/88
== END 2017-06-19 18:18 | disposition home or self-care (01) ==
LOC: ED 16:35
DX: R10.84 Generalized abdominal pain (principal); I10 Essential (primary) hypertension; R51 Headache; E11.65 Type 2 diabetes mellitus with hyperglycemia; F17.210 Nicotine dependence, cigarettes, uncomplicated; Z90.49 Acquired absence of other specified parts of digestive tract
CPT/HCPCS: 36415; 70450; 74174; 80053; 82010; 82803; 83690; 85025; 96361; 96374; 99285; J0780; J1170; J1200; J2405; J7030; Q9967; S0028

== ENCOUNTER 2017-07-14 08:42 | Emergency (ER) | payer MEDICAID ==
[~2017-07-14] VITALS: Ht 177.8 cm; Wt 96.0 kg
[2017-07-14] MEDS ORDERED: SODIUM CHLORIDE 0.9% 1,000 ML IV ONE (08:49)
[2017-07-14] MEDS ORDERED: ONDANSETRON 2MG/ML, 2ML IVPush ONE (09:00)
[2017-07-14] MEDS ORDERED: hydrALAzine 20 MG/ML, 1ML IV ONE (09:00)
[2017-07-14] MEDS ORDERED: SODIUM CHLORIDE 0.9% 1,000ML IVBOLUS ONE (09:00)
[2017-07-14] MEDS ORDERED: MORPHINE SULFATE 4 MG/ML, 1ML IVPush PRN (09:00)
[2017-07-14] MEDS ORDERED: MORPHINE SULFATE 4 MG/ML, 1ML ONE (09:12)
[2017-07-14] MEDS ORDERED: ONDANSETRON 2MG/ML, 2ML ONE (09:12)
[2017-07-14 09:19] LABS: HEMATOCRIT 45.6 % (39.2-51.8); HEMOGLOBIN 14.8 g/dL (13.7-18.0); WHITE BLOOD COUNT 13.5 x10^3/uL (3.4-10)
[2017-07-14] MEDS ORDERED: LORazepam 2 MG/ML, 1ML ONE (09:33)
[2017-07-14 09:38] LABS: ASPARTATE AMINO TRANSFERASE 18 U/L (15-37); BLOOD UREA NITROGEN 10 mg/dL (7-18)
[2017-07-14] MEDS ORDERED: LORazepam 2 MG/ML, 1ML IVPush ONE (10:00)
[2017-07-14 10:17] VITALS: BP 196/106
[2017-07-14] MEDS ORDERED: hydrALAzine 20 MG/ML, 1ML ONE (10:20)
[2017-07-14 10:53] LABS: PATH.CAST-FLAG NOT PRESENT; SPERM-FLAG NOT PRESENT; SRC-FLAG NOT PRESENT; XTAL-FLAG NOT PRESENT; YLC-FLAG NOT PRESENT
== END 2017-07-14 11:56 | disposition home or self-care (01) ==
LOC: ED 10:16
DX: R10.84 Generalized abdominal pain (principal); I10 Essential (primary) hypertension; E11.9 Type 2 diabetes mellitus without complications
CPT/HCPCS: 36415; 74020; 80053; 81001; 83690; 85025; 96374; 96375; 99285; J0360; J2060; J2405

== ENCOUNTER 2017-08-08 22:43 | Emergency (ER) | payer MEDICAID ==
[~2017-08-08] VITALS: Ht 182.9 cm; Wt 100.0 kg
[2017-08-08] MEDS ORDERED: MORPHINE SULFATE 4 MG/ML, 1ML ONE (22:58)
[2017-08-08] MEDS ORDERED: METOCLOPRAMIDE 5 MG/ML, 2ML ONE (22:58)
[2017-08-08] MEDS ORDERED: DIPHENHYDRAMINE 50 MG/ML, 1ML ONE (22:58)
[2017-08-08] MEDS ORDERED: DIPHENHYDRAMINE 50 MG/ML, 1ML IVPush ONE (23:00)
[2017-08-08] MEDS ORDERED: METOCLOPRAMIDE 5 MG/ML, 2ML IVPush ONE (23:00)
[2017-08-08] MEDS ORDERED: SODIUM CHLORIDE FLUSH 10ML SYR IVF ONE (23:00)
[2017-08-08] MEDS ORDERED: SODIUM CHLORIDE 0.9% 1,000ML IVBOLUS ONE (23:00)
[2017-08-08] MEDS: MORPHINE SULFATE 4 MG/ML, 1ML IVPush PRN (23:07)
[2017-08-08 23:36] LABS: BASOPHILS # (AUTO) 0.12 x10^3/uL (0-0.1); BASOPHILS % (AUTO) 1 % (0-1); EOSINOPHILS # (AUTO) 0.18 x10^3/uL (0-0.4); EOSINOPHILS % (AUTO) 2 % (1-7); LYMPHOCYTES # (AUTO) 1.42 x10^3/uL (1-3.4); LYMPHOCYTES % (AUTO) 12 % (22-44); MD NO; MEAN CORPUSCULAR HEMOGLOBIN 29.1 pg (27.5-34.5); MEAN CORPUSCULAR VOLUME 88.2 fL (81-97); MEAN PLATELET VOLUME 8.2 fL (7.4-10.4); MONOCYTES # (AUTO) 0.81 x10^3/uL (0.2-0.8); MONOCYTES % (AUTO) 7 % (2-9); NEUTROPHILS # (AUTO) 9.77 x10^3/uL (1.8-6.8); NEUTROPHILS % (AUTO) 80 % (42-75); PLATELET COUNT 316 x10^3/uL (130-400); RED BLOOD COUNT 4.36 x10^6/uL (4.38-5.82); RED CELL DISTRIBUTION WIDTH 13.4 % (9.4-14.8)
[2017-08-08 23:45] LABS: ALANINE AMINOTRANSFERASE 29 U/L (12-78); ALBUMIN 3.3 g/dL (3.4-5.0); ANION GAP 5 mmol/L (5-15); CALCIUM 8.6 mg/dL (8.5-10.1); CHLORIDE 106 mmol/L (98-107); CREATININE 0.89 mg/dL (0.7-1.3)
[2017-08-08 23:48] LABS: ALKALINE PHOSPHATASE 101 U/L (45-117); BILIRUBIN,TOTAL 0.3 mg/dL (0.2-1.0); TOTAL PROTEIN 6.6 g/dL (6.4-8.2)
[2017-08-09] MEDS: MORPHINE SULFATE 4 MG/ML, 1ML IVPush PRN (00:05)
[2017-08-09] MEDS ORDERED: OMNIPAQUE 350 MG/ML, 100ML BOTTLE ONE (00:48)
[2017-08-09 01:39] VITALS: BP 152/89
== END 2017-08-09 01:41 | disposition home or self-care (01) ==
LOC: ED 22:47
DX: R10.84 Generalized abdominal pain (principal); Z90.49 Acquired absence of other specified parts of digestive tract; I10 Essential (primary) hypertension; E11.9 Type 2 diabetes mellitus without complications; G89.29 Other chronic pain
CPT/HCPCS: 36415; 74022; 74177; 80053; 83690; 85025; 93005; 96361; 96374; 96375; 96376; 99285; J1200; J2765; J7030; Q9967

== ENCOUNTER 2018-01-25 14:05 | Emergency (ER) | payer MEDICAID ==
[~2018-01-25] VITALS: Ht 175.3 cm; Wt 75.0 kg
[~2018-01-25 14:05] MED LIST changes: -METF500T4 PO; +METF500T5 PO
[2018-01-25] MEDS ORDERED: ONDANSETRON 2MG/ML, 2ML IVPush ONE (15:00)
[2018-01-25] MEDS ORDERED: LORazepam 2 MG/ML, 1ML IVPush PRN (15:00)
[2018-01-25] MEDS ORDERED: SODIUM CHLORIDE 0.9% 1,000ML IVBOLUS ONE (15:00)
[2018-01-25] MEDS ORDERED: DIPHENHYDRAMINE 50 MG/ML, 1ML IVPush ONE (15:00)
[2018-01-25] MEDS ORDERED: METOCLOPRAMIDE 5 MG/ML, 2ML IVPush ONE (15:00)
[2018-01-25] MEDS ORDERED: ONDANSETRON 2MG/ML, 2ML ONE (15:03)
[2018-01-25] MEDS ORDERED: DIPHENHYDRAMINE 50 MG/ML, 1ML ONE (15:03)
[2018-01-25] MEDS ORDERED: LORazepam 2 MG/ML, 1ML ONE (15:04)
[2018-01-25] MEDS ORDERED: METOCLOPRAMIDE 5 MG/ML, 2ML ONE (15:04)
[2018-01-25 15:21] LABS: BASOPHILS # (AUTO) 0.01 x10^3/uL (0-0.1); BASOPHILS % (AUTO) 0 % (0-1); EOSINOPHILS # (AUTO) 0.01 x10^3/uL (0-0.4); EOSINOPHILS % (AUTO) 0 % (1-7); LYMPHOCYTES # (AUTO) 1.28 x10^3/uL (1-3.4); LYMPHOCYTES % (AUTO) 7 % (22-44); MD NO; MEAN CORPUSCULAR HEMOGLOBIN 29.8 pg (27.5-34.5); MEAN CORPUSCULAR HGB CONC 33.1 g/dL (33.2-36.2); MEAN PLATELET VOLUME 8.8 fL (7.4-10.4); MONOCYTES # (AUTO) 0.23 x10^3/uL (0.2-0.8); MONOCYTES % (AUTO) 1 % (2-9); NEUTROPHILS # (AUTO) 16.07 x10^3/uL (1.8-6.8); NEUTROPHILS % (AUTO) 91 % (42-75); PLATELET COUNT 343 x10^3/uL (130-400); RED BLOOD COUNT 4.95 x10^6/uL (4.38-5.82); RED CELL DISTRIBUTION WIDTH 13.4 % (9.4-14.8)
[2018-01-25 15:29] LABS: ALANINE AMINOTRANSFERASE 27 U/L (12-78); ANION GAP 11 mmol/L (5-15); CALCIUM 9.5 mg/dL (8.5-10.1); CHLORIDE 106 mmol/L (98-107); CREATININE 1.01 mg/dL (0.7-1.3)
[2018-01-25 15:32] LABS: ALKALINE PHOSPHATASE 146 U/L (45-117); BILIRUBIN,TOTAL 0.6 mg/dL (0.2-1.0); TOTAL PROTEIN 7.6 g/dL (6.4-8.2)
[2018-01-25] MEDS ORDERED: ZIPRASIDONE 20 MG INJ IM ONE ×2 (16:30→16:48)
[2018-01-25 19:28] VITALS: BP 150/63
[2018-01-25 19:34] LABS: TROPONIN I < 0.015 ng/mL (0.000-0.045)
== END 2018-01-25 20:55 | disposition home or self-care (01) ==
LOC: ED 17:11
DX: R10.84 Generalized abdominal pain (principal); E11.65 Type 2 diabetes mellitus with hyperglycemia; I10 Essential (primary) hypertension; F41.1 Generalized anxiety disorder; F10.20 Alcohol dependence, uncomplicated; Z91.14 Patient's other noncompliance with medication regimen; Z87.19 Personal history of other diseases of the digestive system
CPT/HCPCS: 36415; 74022; 80053; 83690; 84484; 85025; 93005; 96361; 96372; 96374; 96375; 99285; J1200; J2060; J2405; J2765; J3486; J7030